=== PATIENT | female | born 1965 | race American Indian/Alaskan Native ===

== ENCOUNTER 2021-09-08 08:52 | Emergency (ER) | payer BC, OTHER ==
[2021-09-08 09:09] VITALS: BP 173/80
[2021-09-08] MEDS ORDERED: ACETAMINOPHEN 325 MG TAB PO ONE (15:58)
[2021-09-08] MEDS ORDERED: IBUPROFEN 400 MG TAB PO ONE (15:58)
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
== END 2021-09-08 17:29 | disposition home or self-care (01) ==
LOC: ED 08:52
DX: S06.0X0A Concussion without loss of consciousness, initial encounter (principal); R07.89 Other chest pain; I10 Essential (primary) hypertension; V49.9XXA Car occupant (driver) (passenger) injured in unspecified traffic accident, initial encounter; Y93.89 Activity, other specified; Y92.89 Other specified places as the place of occurrence of the external cause; Y99.8 Other external cause status
CPT/HCPCS: 71046; 99283